=== PATIENT | male | born 1995 | race Caucasian/White ===

== ENCOUNTER 2020-02-14 17:49 | Emergency (ER) | payer OTHER, SELFPAY ==
[2020-02-14 17:55] VITALS: BP 114/59; PULSE 92; RESP 20; TEMP 36.8; O2SAT 99
--- NOTE | 2020-02-14 18:42 | ED.ABDPAIN ---
HPI - Abdominal Pain General Chief Complaint: Abdominal Pain Stated Complaint: hemmoroid / hernia Time Seen by Provider: 02/14/20 18:42 Source: patient and RN notes reviewed Mode of arrival: ambulatory Limitations: no limitations History of Present Illness HPI narrative: 24 year old male who presents to [facility] care with complaints dull pain to his left lower abdomen for the past 2 days which increased today at work when he was throwing heavy tires into a trailer. He also states that this morning after having a bowel movement he has been experiencing rectal pain which became sharp when he was lifting the heavy tractor and truck tires. Patient denies any nausea or vomiting, states that his stool this morning was firm in consistency with no blood noted in stool. He denies any penile pain or bulging noted in his lower abdomen. MD elicited complaint: other (left groin pain) Pertinent past history: kidney stones Onset (ago): day(s) (2) Pain Consistency: constant Location: LLQ and other (rectal pain) Severity: severe Pain scale (0-10): 7 Quality: aching and sharp Radiation: LLQ Exacerbating factors: movement Relieving factors: rest Context: confirms other (lifting and bowel movement this morning) Associated symptoms: denies other symptoms Related Data Allergies Allergy/AdvReac Type Severity Reaction Status Date / Time No Known Allergies Allergy Verified 02/14/20 18:21 Review of Systems Review of Systems: Narrative: CONSTITUTIONAL: Denies fever, chills, or sweats. EYES: Denies visual changes, redness, or discharge. ENT: Denies rhinorrhea, congestion, sore throat, or otalgia. CARDIOVASCULAR: Denies chest pain, palpitations, or edema. RESPIRATORY: Denies cough or dyspnea. GASTROINTESTINAL: positive for left lower abdominal pain,no nausea, vomiting, or diarrhea. positive for rectal pain GENITOURINARY: Denies dysuria or hematuria.denies any testicular or penis discomfort SKIN: Denies rash or itching. MUSCULOSKELETAL: Denies back pain, joint pain, or myalgia. NEUROLOGIC: Denies headache, numbness, or weakness. PSYCHIATRIC: Denies anxiety or depression. All systems reviewed & are unremarkable except as noted in HPI and below PMFSH Past Medical History Medical History (Updated 02/15/20 @ 20:53 by Imelda Chavez NP) ADHD Kidney stones Surgical History Surgical History (Updated 02/17/20 @ 08:13 by Imelda Chavez NP) No history of previous surgery Social History Social History (Updated 02/15/20 @ 20:57 by Imelda Chavez NP) Smoking packs per day: 1 Smoking cigarettes per day: 20.0 Years smoked: 7 Smoking pack-years: 7.00 Smoking status: Current every day smoker Tobacco type: cigarettes Substance use type: marijuana Living arrangements: with family Gender identity (if verbalized by the patient): Male Comments at time of signature agree with nursing documentation of past medical, surgical and social history. There is no pertinent family history relevant to presenting problem/ Exam Narrative: Exam Narrative: GENERAL: Well-appearing, well-nourished, and in noted pain HEAD: Normocephalic, atraumatic. EYES: PERRLA and EOMI. ENT: Nares clear, no rhinorrhea or epistaxis. Mucous membranes moist. NECK: Supple. CHEST: Clear to auscultation. No respiratory distress.SAO2 99% on room air HEART: Regular rate and rhythm. No murmur heard. Normal peripheral pulses. ABDOMEN: Soft, tender to left abdomen on palpation no bulging noted, nondistended, normal active bowel sounds.On exam for hernia no bulging noted in inguinal ring. no penile or testicular pain, small tender thrombosed hemorrhoid noted on rectal exam with no inner rectal mass noted.Patient denies any burning or pain with urination, no CVA tenderness. EXTREMITIES: Normal range of motion. No edema. SKIN: Warm, dry, no rash. NEURO: No focal deficits. Alert and oriented x3. Course Vital Signs Vital signs: Vital Signs Temperature 36.8 C 02/14/20 17:5
[2020-02-14] MEDS: KETOROLAC (*BKC) 60 MG/2 ML VIAL IM (19:07)
== END 2020-02-14 19:37 | disposition home or self-care (01) ==
PROVIDERS: Emergency Provider Registered Nurse
DX: R10.32 Left lower quadrant pain (principal); K64.5 Perianal venous thrombosis; F17.210 Nicotine dependence, cigarettes, uncomplicated
CPT/HCPCS: 96372; 99213; G0463; J1885

== ENCOUNTER 2020-05-31 17:02 | Emergency (ER) | payer OTHER, SELFPAY ==
[2020-05-31 17:15] VITALS: BP 124/66; PULSE 91; RESP 20; TEMP 36.9; O2SAT 98
--- NOTE | 2020-05-31 17:19 | ED.MALEGU ---
HPI - Male Genitourinary General Chief complaint: Urogenital-Male Stated complaint: Urogenital-Male Time Seen by Provider: 05/31/20 17:20 Source: patient History of Present Illness HPI Narrative: patient presents for a std CHECK NO SYMPTOMS NO URINARY SYMPTOMS NO DRAINAGE FROM PENIS NO LESIONS TO PENIS PATIENT STATES HE JUST GOT OUT OF A RELATIONSHIP AND WOULD LIKE TO HAVE AN STD CHECK. Related Data Home Medications Medication Instructions Recorded Confirmed No Home Medications 05/31/20 05/31/20 Allergies Allergy/AdvReac Type Severity Reaction Status Date / Time No Known Allergies Allergy Verified 05/31/20 17:33 Review of Systems Review of Systems: Narrative: CONSTITUTIONAL: Denies fever, chills, or sweats. EYES: Denies visual changes, redness, or discharge. ENT: Denies rhinorrhea, congestion, sore throat, or otalgia. CARDIOVASCULAR: Denies chest pain, palpitations, or edema. RESPIRATORY: Denies cough or dyspnea. GASTROINTESTINAL: Denies abdominal pain, nausea, vomiting, or diarrhea. GENITOURINARY: Denies dysuria or hematuria. SKIN: Denies rash or itching. MUSCULOSKELETAL: Denies back pain, joint pain, or myalgia. NEUROLOGIC: Denies headache, numbness, or weakness. PSYCHIATRIC: Denies anxiety or depression. [facility] Past Medical History Medical History (Updated 05/31/20 @ 17:26 by FAZAL Guzman) ADHD Kidney stones Surgical History Surgical History (Updated 02/17/20 @ 08:13 by Imelda Chavez NP) No history of previous surgery Social History Social History (Updated 02/15/20 @ 20:57 by Imelda Chavez NP) Smoking packs per day: 1 Smoking cigarettes per day: 20.0 Years smoked: 7 Smoking pack-years: 7.00 Smoking status: Current every day smoker Tobacco type: cigarettes Substance use type: marijuana Gender identity (if verbalized by the patient): Male Comments At time of signature, agree with nursing past medical, surgical, social and family history. There is no relevant family history pertinent to the presenting complaint Exam Narrative: Exam Narrative: GENERAL: Well-appearing, well-nourished, and in no acute distress. HEAD: Normocephalic, atraumatic. EYES: PERRLA and EOMI. ENT: Nares clear, no rhinorrhea or epistaxis. Mucous membranes moist. NECK: Supple. CHEST: Clear to auscultation. No respiratory distress. HEART: Regular rate and rhythm. No murmur heard. Normal peripheral pulses. ABDOMEN: Soft, nontender, nondistended, normal active bowel sounds. EXTREMITIES: Normal range of motion. No edema. SKIN: Warm, dry, no rash. NEURO: No focal deficits. Alert and oriented x3. [place] Coma Scale Eye Opening: Spontaneous 4 Taj Coma Scale Motor: Obeys Commands 6 [place] Coma Scale Verbal: Oriented 5 Taj Coma Scale Total 15 : General: Yes no CVA tenderness Testes: Testes normal MDM - Male Genitourinary Differential Diagnosis Differential diagnosis: Likely urinary tract infection, priapism, urethritis, epididymitis, genital herpes simplex, prostatitis, acute retention of urine, inguinal hernia and other (STD ) Critical Care Time Critical Care Time Critical Care Time: No Discharge Plan Discharge Clinical Impression: STI (sexually transmitted infection) Patient Disposition: Home, Self-Care Condition: Stable Instructions: Antibiotic Form Additional Instructions: STD We will notify you if any of the tests are positive and you will receive treatment for any positive testing at that time Prevent the spread of an STD: Use condoms. Use a latex, and if you have oral, genital or anal sex. Use a polyurethane Aaron if you're allergic to latex. Do not douche. Douching upsets the normal bounds of bacteria that are found in your vagina. Do Not have Sex with someone who has an STD, this includes oral and anal sex. Limit sexual partners. Do not have sex during treatment. Get screening tests regularly if you're sexually active. Prescriptions: No Ac
== END 2020-05-31 17:40 | disposition home or self-care (01) ==
PROVIDERS: Emergency Provider Nurse Practitioner Family
DX: A64 Unspecified sexually transmitted disease (principal); F17.210 Nicotine dependence, cigarettes, uncomplicated
CPT/HCPCS: 81003; 87491; 87591; 87661; 99212; 99213; G0463

== ENCOUNTER 2020-07-19 18:51 | Emergency (ER) | payer OTHER, SELFPAY ==
--- NOTE | 2020-07-19 19:24 | PC.NURSE ---
CALLED PT PHONE NUMBER MULTUIPLE TIMES AND PT DOES NOT ANSWER PHONE. CHECKED PARKING LOT PER [place] AND NO ONE IN THE PARKING LOT. PT TAKEN OFF THE TRACKER. Neva GRIFFIN RN
== END 2020-07-19 19:30 | disposition left against medical advice (07) ==
LOC: EXPBETH 18:56
PROVIDERS: Emergency Provider Nurse Practitioner
DX: Z53.21 Procedure and treatment not carried out due to patient leaving prior to being seen by health care provider (principal)
CPT/HCPCS: 99199

== ENCOUNTER 2022-11-04 18:41 | Emergency (ER) | payer OTHER, SELFPAY ==
[2022-11-04 19:30] VITALS: BP 127/73; PULSE 62; RESP 14; TEMP 36.8; O2SAT 100
--- NOTE | 2022-11-04 21:34 | ED.GENADULT ---
HPI - General Adult General Chief complaint: Unspecified Stated complaint: hemorrhoid Time Seen by Provider: 11/04/22 21:16 Source: patient Mode of arrival: ambulatory Limitations: no limitations History of Present Illness HPI narrative: This is a 27-year-old male who presents to the ED with chief complaint of a hemorrhoid. He states this has been an intermittent problem for the past year. He states that it has been more painful in the past couple of days. Reports minor difficulty with bowel movements and when he sits down on his buttocks. Bowel movements have been regular. No fevers, chills, abdominal pain, diarrhea, vomiting. States he has tried an [id number] cream with minimal relief. Related Data Allergies Allergy/AdvReac Type Severity Reaction Status Date / Time No Known Allergies Allergy Verified 05/31/20 17:33 Review of Systems Review of Systems: CONSTITUTIONAL: Denies fever, chills, or sweats. EYES: Denies visual changes, redness, or discharge. ENT: Denies rhinorrhea, congestion, sore throat, or otalgia. CARDIOVASCULAR: Denies chest pain, palpitations, or edema. RESPIRATORY: Denies cough or dyspnea. GASTROINTESTINAL: See HPI GENITOURINARY: Denies dysuria or hematuria. SKIN: Denies rash or itching. MUSCULOSKELETAL: Denies back pain, joint pain, or myalgia. NEUROLOGIC: Denies headache, numbness, dizziness, or weakness. PSYCHIATRIC: Denies anxiety or depression. PMFSH Past Medical History Medical History (Updated 11/04/22 @ 21:35 by Grayson Brown PA-C) ADHD Kidney stones Surgical History Surgical History (Updated 02/17/20 @ 08:13 by Imelda Chavez NP) No history of previous surgery Social History Social History (Updated 02/15/20 @ 20:57 by Imelda Chavez NP) Smoking packs per day: 1 Smoking cigarettes per day: 20.0 Years smoked: 7 Smoking pack-years: 7.00 Smoking status: Current every day smoker Tobacco type: cigarettes Substance use type: marijuana Living arrangements: with family Gender identity (if verbalized by the patient): Male Exam Narrative: GENERAL: Well-appearing, well-nourished, and in no acute distress. HEAD: Normocephalic, atraumatic. EYES: PERRLA and EOMI. ENT: Nares clear, no rhinorrhea or epistaxis. Mucous membranes moist. Oropharynx without tonsillar hypertrophy exudate or other lesions. NECK: Supple. No adenopathy or masses. CHEST: No respiratory distress. Clear to auscultation. No wheezes rales or rhonchi HEART: Regular rate and rhythm. No murmur heard. Normal peripheral pulses. ABDOMEN: Soft, nontender, nondistended, normal active bowel sounds. MSK: Normal range of motion. No edema. SKIN: Warm, dry, no rash. NEURO: Alert and oriented x3. No focal deficits. PSYCH: Normal mood and affect. Rectal exam performed with nurse labview programmer present: External hemorrhoid noted. It is skin colored. No significant discoloration or dark spots. mildly tender. Course Vital Signs Vital signs: Vital Signs Temperature 98.3 F 11/04/22 19:30 Pulse Rate 62 11/04/22 19:30 Respiratory Rate 14 11/04/22 19:30 Blood Pressure 127/73 11/04/22 19:30 Pulse Oximetry 100 11/04/22 19:30 Oxygen Delivery Room Air 11/04/22 19:30 Temperature 98.3 F 11/04/22 19:30 Pulse Rate 62 11/04/22 19:30 Respiratory Rate 14 11/04/22 19:30 Blood Pressure 127/73 11/04/22 19:30 Pulse Oximetry 100 11/04/22 19:30 Oxygen Delivery Room Air 11/04/22 19:30 Medical Decision Making MDM Narrative Medical decision making narrative: This is a 27-year-old male coming into the ED with chief complaint of an external hemorrhoid that has been previously diagnosed. Vitals are stable. Rectal exam does reveal an external hemorrhoid. No fissures seen. Did not palpate any internal hemorrhoids. The hemorrhoid is skin colored. we will give him a new prescription for Anusol as he has not tried this yet. Encouraged him to continue wit
== END 2022-11-04 21:51 | disposition home or self-care (01) ==
LOC: ANHED 21:44
PROVIDERS: Emergency Provider Physician Assistant
DX: K64.4 Residual hemorrhoidal skin tags (principal); Z87.442 Personal history of urinary calculi; F17.210 Nicotine dependence, cigarettes, uncomplicated
CPT/HCPCS: 99283

== ENCOUNTER 2025-04-09 18:49 | Emergency (ER) | payer OTHER, SELFPAY ==
--- NOTE | ~2025-04-09 | XR_ITS ---
XR thoracic spine 3V Indication: tender to T7 T8 after fall Comparison: None Findings: Mild levoconvex scoliosis in the upper thoracic spine. No fracture or subluxation is identified. The disc heights are intact. Soft tissues unremarkable Impression: No acute abnormality. Reviewed, dictated and finalized at location P. Impression: No acute abnormality.
--- OUTSIDE RECORDS SUMMARY | 2025-04-09 18:52 | XMS_ITS | Clinical Summary ---
Author Organization [facility] Address [address] [place] [address] Phone Care Team Providers Care Liner Assembler Name Role Phone Velmajessica Елена ESTEBAN Primary Care Provider + Allergies No known active allergies Medications methylPREDNISol one (MEDROL DOSPACK) 4 MG Tablet Therapy PackIndications :Sinus congestion Follow instructions on pack, take with food; Give one pack 21 Tablet 4 Active Additional Information Patient not taking.Reported on 02/05/2024 meclizine (ANTIVERT) 25 MG TabletIndicatio ns:Dizziness Take 1 Tablet by mouth 3 times daily as needed for Dizziness. 30 Tablet 4 Active Active Problems No known active problems Immunizations Immunization Administration Dates Next Due TDAP Vaccine 07/24/2023 Social History Tobacco Use Types Packs/Day Years Used Date Smoking Tobacco: Former Cigarettes Q uit: 2020 Passive Smoke Exposure: Current Smokeless Tobacco: Never Tobacco Cessation:Counseling Given: No Alcohol Use Standard Drinks/Week Comments Yes 0 (1 standard drink = 0.6 oz pur e alcohol) socially AUDIT-C Answer Date Recorded Frequency of Alcohol Consumption Never 05/19/2019 Average Number of Drinks Not on file 019 Frequency of Binge Drinking Not on file 10/2018 PHQ-2 Answer Date Recorded Total Score - Questions 1-9 0 10/13 Education Answer Date Recorded What is the highest level of school you have completed or the highest degree you have received? 11th grade 11/06/2022 Sex and Gender Information Value Date Recorded Sex Assigned at Not on file Legal Sex Male 12:12 AM CDT Gender Identity Not on file Sexual Orientation Not on file Last Filed Vital Signs Vital Sign Reading Time Taken Comments Blood Pressure 122/70 01/22/2024 10:07 AM CDT Pulse 64 01/22/2024 10:07 AM CDT Temperature 36.9 C (98.4 F) 01/22/2024 10:07 AM CDT Respiratory Rate 16 01/22/2024 10:07 AM CDT Oxygen Saturation 98% 01/22/2024 10:07 AM CDT Inhaled Oxygen Concentration - - Weight 67.4 kg (148 lb 9.6 oz) 01/22/2024 10:07 AM CDT Height 185.4 cm (6' 1) 01/22/2024 10:07 AM CDT Body Mass Index 19.61 01/22/2024 10:07 AM CDT Plan of Treatment Health Maintenance Due Date Last Done Comments Hepatitis C Virus (HCV) Screening 1997 Human Papillomavirus (HPV) Immunization (1 - 3-dose SCDM series) 2024 Influenza Immunization (#1) 2025 SARS-COV-2 Immunization ( season) 2025 Td Immunization Every 10 Yea rs (Adults With 1 Tdap) 07/24/2033 07/24/2023, 02/22/2014, 11/29/2008 Respiratory Syncytial Virus (RSV) Immunization (Adult) (1 - 1-dose 75+ series) 2072 Hepatitis B Immunization Completed 998, 1997, 1997 DTaP/Tdap/Td Immunization Discontinued 2023, 02/22/2014, 11/29/2008 Meningococcal Immunization (ACWY) Aged Out No longer eligible based on patient's age to complete this topic Pneumococcal Immunization Combined Aged Out No longer eligible based on patient's age to complete this topic Rotavirus Immunization Aged Out No lo nger eligible based on patient's age to complete this topic Insurance [facility] Care Teams Liner Assembler Relationship Specialty Start Date End Date Janice Rivas PAC [id number] [place] [id number] PCP - General Physician Equipment Cleaner 05/30/20
--- OUTSIDE RECORDS SUMMARY | 2025-04-09 18:52 | XMS_ITS | Clinical Summary ---
Author Organization [facility] Address [address] [place] [address] Care Team Providers Care Food Storeroom Clerk Name Role Phone Janice Rivas Primary Care Provider [phone] Allergies No known active allergies Medications chlorhexidine (PERIDEX) 0.12 % solution Apply 15 mL to the mouth or throat 4 (four) times a day 473 mL 1 Active HYDROcodone-acetam inophen (NORCO) 5-325 mg per tabletIndications: Pain Take 1-2 tablets by mouth every 6 (six) hours as needed for pain 6 tablet 1 Active ketorolac (TORADOL) 10 mg tabletIndications: Severe Pain Take 1 tablet (10 mg total) by mouth every 6 (six) hours as needed for pain Take with food 20 tablet 1 Active bacitracin 500 unit/gram ointment Apply topically 2 (two) times a day 120 g 1 Active traMADoL (ULTRAM) 50 mg tablet Take 1 tablet (50 mg total) by mouth every 6 (six) hours for 10 doses 10 tablet 2 Active ondansetron ODT (ZOFRAN-ODT) 4 mg disintegrating tablet Take 1 tablet (4 mg total) by mouth every 8 (eight) hours as needed for nausea or vomiting for up to 20 doses 20 tablet 3 Active ondansetron (ZOFRAN) 4 mg tablet Take 1 tablet (4 mg total) by mouth every 6 (six) hours 12 tablet 5 Active Active Problems Problem Noted Date Diagnosed Date Closed displaced fracture of fifth metacarpal bone of left hand 10/08/2017 Medical History Medical History Date Comments Depression Anorexia Poor appetite - (Added by TW Conv) Personal history of other sp ecified conditions History of fatigue - (Added by TW Conv) Personal history of other di seases of urinary system History of polyuria - (Added by TW Conv) Family History Medical History Relation Name Comments Liver cancer Other Family history of liver cancer - Relation: Grandparent (Added by TW Conv) Arthritis Paternal Grandfather Cancer Paternal Grandfather Arthritis Paternal Grandmother Relation Name Status Comments Other Paternal Grandfather Paternal Grandmother Social History Tobacco Use Types Packs/Day Years Used Date Smoking Tobacco: Former Cigarettes Smokeless Tobacco: Never Tobacco Cessation:Ready to Q uit: No; Counseling Given: Yes Alcohol Use Standard Drinks/Week Comments Yes 0 (1 standard drink = 0.6 oz pur e alcohol) rarely Personal Safety Answer Date Recorded Have you ever been in or are you currently in a harmful physical or emotional relationship or is someone making you feel afraid or unsafe? 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 Gender Identity Not on file Sexual Orientation Not on file Obstetrics History Last Filed Vital Signs Vital Sign Reading Time Taken Comments Blood Pressure 125/72 09/20/2024 10:35 PM CDT Pulse 72 09/20/2024 10:35 PM CDT Temperature 37 C (98.6 F) 09/20/2024 8:04 PM CDT Respiratory Rate 18 09/20/2024 10:35 PM CDT Oxygen Saturation 99% 09/20/2024 10:35 PM CDT Inhaled Oxygen Concentration - - Weight 77.1 kg (170 lb) 09/20/2024 8:02 PM CDT Height 190.5 cm (6' 3) 09/20/2024 8:02 PM CDT Body Mass Index 21.25 09/20/2024 8:02 PM CDT Plan of Treatment Health Maintenance Due Date Last Done Comments Depression Screening 1997 Hepatitis C Screening 1997 Varicella Vaccines (2 of 2 - 2-dose childhood series) 2001 08/20/1999 Regular Well Visit/Exam 18-64 2015 HPV Vaccines (1 - 3-dose SCD M series) 2024 Influenza Vaccine (#1) 2025 DTaP/Tdap/Td Vaccine (4 - Td or Tdap) 07/24/2033 07/24/2023, 02/22/2014, 11/29/2008 Hepatitis B Screening Completed 01/09/1998 , 1997, 1997 Pneumococcal vaccine <65 Aged Out No longer eligible based on patient's age to complete this topic Medical Devices Implanted Type Area Plating Technician Device Identifier Shelf Expiration Date Model / Serial / Lot Screw Bone Lcp Stainless Steel T4 Low Profile L9 Mm Od1.5 Mm Small Bone Cortical Self Tap Self Retaining Thread Head Stardrive Nonsterile Modular Mini Fragment System - [id number] Implanted:Qty: 1 on 10/06/2017 by Jose Puri III, MD at [facility] Left: Wrist Synthes I [id number] / / Description:9 MM NON-LOCKING 1.55 SCREW 8 Mm Locking 1.5 Screw Times 2 Implanted:Qty: 2 on 10/06/2017 by Jose Puri III, MD at [facility] Left: Wrist Synthes I 02.130.208 / [id number] / 9 Mm Locking Screw / 1.5mm Implanted:Qty: 1 on 10/06/2017 by Jose Puri III, MD at [facility] Left: Wrist Synthes I 02.130.209 / [id number] / 10mm Locking Screws/1.5mm Implanted:Qty: 1 on 10/06/2017 by Jose Puri III, MD at [facility] Left: Wrist Synthes I [id number] / [id number] / Locking Plate 12 Hole Implanted:Qty: 1 on 10/06/2017 by Jose Puri III, MD at [facility] Left: Wrist Synthes I [id number] / / 8mm Nonlocking Screw/1.5mm Implanted:Qty: 1 on 10/06/2017 by Jose Puri III, MD at [facility] Left: Wrist Synthes I 02.214.108 / [id number] / Insurance [facility] [place] [facility] OPEN ACCESS HEALTHLINK OPEN ACCESS COMMERCIAL GENERIC [facility] [employer] [place] * Guarantor: Amadou Wall Account Type Relation to Patient Date of Phone Billing Address Personal/Family Self 1995 [address] [place] [address] [facility] CHOICE PLUS Care Teams Food Storeroom Clerk Relationship Specialty Start Date End Date Janice Rivas PA [address] [place] [address] PCP - General Heavy Equipment Sales Associate 03/22/23
--- OUTSIDE RECORDS SUMMARY | 2025-04-09 18:52 | XMS_ITS | Clinical Summary ---
Author Organization [facility] Address [address] [place] [address] Phone Care Team Providers Care Network Architect Manager Name Role Phone Unavailable Primary Care Provider Unavailabl e Social History Tobacco Use Types Packs/Day Years Used Date Smoking Tobacco: Never Assessed Sex and Gender Information Value Date Recorded Sex Assigned at Not on file Legal Sex Male 4:29 PM CDT Gender Identity Not on file Sexual Orientation Not on file Plan of Treatment Health Maintenance Due Date Last Done Comments HEPATITIS B VACCINES (1 of 3 - 19+ 3-dose series) 10/2015 HPV VACCINES (1 - 3-dose SCDM series) 2024 INFLUENZA VACCINE (#1) 2025 DTAP/TDAP/TD VACCINES (2 - Td or Tdap) 07/24/2033
[2025-04-09 19:02] VITALS: BP 150/83; PULSE 87; RESP 16; TEMP 37.1; O2SAT 100
--- NOTE | 2025-04-09 19:03 | ED_ITS ---
HPI - Back Pain/Injury General Chief Complaint: Back Pain/Injury Stated Complaint: Back Pain/Injury Time Seen by Provider: 04/09/25 19:03 Source: patient Mode of arrival: ambulatory Limitations: no limitations History of Present Illness HPI Narrative: Mofix[id number]-old male presents with upper back pain. patient states the battery on his car. Was pushing car by leaning back against open car door and walking backwards. Slipped in gravel and fell on ground on back. Ambulatory with steady gait. Normal range of motion to bilateral upper extremities. Denies weakness, numbness, tingling. All systems reviewed and negative except as noted above. Related Data Allergies Allergy/AdvReac Type Severity Reaction Status Date / Time No Known Allergies Allergy Verified 04/09/25 19:02 [facility] Past Medical History Medical History (Updated 04/09/25 @ 19:36 by Diane Ledbetter APRN) ADHD Kidney stones Surgical History Surgical History (Updated 02/17/20 @ 08:13 by Imelda Chavez APRN) No history of previous surgery Social History Social History (Updated 02/15/20 @ 20:57 by Imelda Chavez APRN) Smoking packs per day: 1 Smoking cigarettes per day: 20.0 Years smoked: 7 Smoking pack-years: 7.00 Smoking status: Current every day smoker Tobacco type: cigarettes Substance use type: marijuana Living arrangements: with family Gender identity (if verbalized by the patient): Male Comments At time of signature, agree with nursing past medical, surgical, social and family history. There is no relevant family history pertinent to the presenting complaint. Exam Narrative: GENERAL: This is a well-nourished, well-developed patient, in no apparent distress. HEAD: normocephalic, atraumatic. EYES: PERRL. Sclera clear/white. Vision is grossly intact. EARS: External ears normal NOSE: External nose normal NECK: Neck supple, non-tender without lymphadenopathy, masses or thyromegaly. CARDIOVASCULAR: Regular rate and rhythm without murmurs, gallops, or rubs. RESPIRATORY: Clear to auscultation. Breath sounds equal bilaterally. No wheezes, rales, or rhonchi. SKIN: warm, Dry, intact with no suspicious lesions or rash, good texture and turgor. NEURO: awake, alert, and oriented to person, place and time. There were no obvious focal neurologic abnormalities. EXTREMITIES: No joint tenderness, effusion, or edema noted. Normal range of motion to bilateral upper and lower extremities. BACK: Tender to T7, T8. No deformity noted. Course Course Level of Care: Express Care Visit Vital Signs Vital signs: Vital Signs Temperature 37.1 C 04/09/25 19:02 Pulse Rate 87 04/09/25 19:02 Respiratory Rate 16 04/09/25 19:02 Blood Pressure 150/83 H 04/09/25 19:02 Pulse Oximetry 100 04/09/25 19:02 Oxygen Delivery Room Air 04/09/25 19:02 Temperature 37.1 C 04/09/25 19:02 Pulse Rate 87 04/09/25 19:02 Respiratory Rate 16 04/09/25 19:02 Blood Pressure 150/83 H 04/09/25 19:02 Pulse Oximetry 100 04/09/25 19:02 Oxygen Delivery Room Air 04/09/25 19:02 Reviewed MDM - Back Pain/Injury MDM Narrative Medical decision making narrative: x-ray of thoracic spine negative for fracture. Discussed results with patient. No neuro deficits. Recommend ibuprofen, ice, heat. Will prescribe methocarbamol for muscle spasms. Patient agrees with plan of care. Differential Diagnosis Differential diagnosis: Likely thoracic back pain and other ( Thoracic strain,) Imaging Data My impression: agree with radiologist Radiologist's impression: XR thoracic spine 3V Indication: tender to T7 T8 after fall Comparison: None Findings: Mild levoconvex scoliosis in the upper thoracic spine. No fracture or subluxation is identified. The disc heights are intact. Soft tissues unremarkable Impression: No acute abnormality. Discharge Plan Discharge Clinical Impression: Strain of muscle and tendon of back wall of thorax, initial encounter Patient Disposition: Home Condition: Stable Instructions: Thoracic Back Strain (ED) Additional Instructions: the x-ray of your thoracic spine was negative for fracture. Take ibuprofen every 6-8 hours as needed for pain. Methocarbamol as a muscle relaxant may make you drowsy. Do not drive while taking this medication. Alternate between ice and heat. Do stretching exercises as tolerated. Follow-up with your primary care physician if symptoms are not improving. Patient Language: Green[place]ic Prescriptions: New methocarbamol 500 mg tablet 500 mg PO Q6H PRN (Reason: muscle pain/spasm) Qty: 30 0RF Follow-up/Referrals: UNKNOWN,DOCTOR [Primary Care Provider] Stand Alone Forms: Work/School Release IP Time of Disposition: 19:36
== END 2025-04-09 19:43 | disposition home or self-care (01) ==
PROVIDERS: Emergency Provider Nurse Practitioner Family
DX: S29.012A Strain of muscle and tendon of back wall of thorax, initial encounter (principal); W01.0XXA Fall on same level from slipping, tripping and stumbling without subsequent striking against object, initial encounter; F17.210 Nicotine dependence, cigarettes, uncomplicated; F12.90 Cannabis use, unspecified, uncomplicated
CPT/HCPCS: 72072; 99213; G0463